=== PATIENT | female | born 1995 | race American Indian/Alaskan Native ===

== ENCOUNTER 2016-12-23 03:06 | Emergency (ER) | payer BC, MEDICAID, OTHER ==
[2016-12-23] MEDS ORDERED: ALUM-MAG HYDROX-SIMETH 200-200-20MG/5ML PO ONE (05:00)
[2016-12-23] MEDS ORDERED: LIDOCAINE VISCOUS 2% PO ONE (05:00)
[2016-12-23] MEDS ORDERED: DECADRON IM ONE (05:00)
[2016-12-23] MEDS ORDERED: MOTRIN PO ONE (05:00)
[2016-12-23] MEDS ORDERED: TYLENOL PO ONE (05:00)
--- NOTE | 2016-12-23 05:01 | Emergency Department Report ---
ED General Adult HPI - General Chief complaint: Sore Throat Stated complaint: SORE THROAT Time Seen by Provider: 12/23/16 04:55 Source: patient, RN notes reviewed Mode of arrival: Ambulatory Limitations: No Limitations - History of Present Illness Initial comments: This is a 21-year-old female. She is previously unknown to me. She presents to the ER with sore throat, ear pain, and body pain. There is a positive cough. No fevers that she is aware of. No chills. No shortness of breath. No abdominal pain. Pain increases with swallowing. She reports that she is . She reports that she was recently incarcerated for 6 days, and is worried that she may have "caught something." -: Gradual Severity scale (0 -10): 10 Quality: aching Consistency: intermittent Improves with: rest Worsens with: eating Associated Symptoms: denies: confusion, chest pain, fever/chills - Related Data Previous Rx's Medication Instructions Recorded Last Taken Type Ondansetron [Zofran Odt] 4 mg PO Q4H #20 tab.rapdis 01/01/14 Unknown Rx Pnv#21/Iron Ps& Heme Polyp/FA 1 each PO QDAY #30 tablet 01/01/14 Unknown Rx [Prefera Ob Tablet] Cephalexin [Keflex] 500 mg PO TID #9 capsule 09/01/14 Unknown Rx Allergies Allergy/AdvReac Type Severity Reaction Status Date / Time No Known Allergies Allergy Unverified 06/13/13 03:19 ED Review of Systems ROS: Stated complaint: SORE THROAT Other details as noted in HPI Constitutional: denies: fever Eyes: denies: vision change ENT: ear pain, throat pain, congestion Respiratory: see HPI. denies: shortness of breath Cardiovascular: denies: chest pain Gastrointestinal: denies: abdominal pain Genitourinary: denies: urgency, dysuria, discharge Musculoskeletal: arthralgia Skin: denies: lesions Neurological: denies: weakness ED Past Medical Hx - Past Medical History Previous Medical History?: No - Surgical History Past Surgical History?: No - Social History Smoking Status: Never Smoker Substance Use Type: None - Medications Home Medications: Home Medications Medication Instructions Recorded Confirmed Last Taken Type Ondansetron [Zofran Odt] 4 mg PO Q4H #20 tab.rapdis 05/02/14 Unknown Rx Pnv#21/Iron Ps& Heme Polyp/FA 1 each PO QDAY #30 tablet 01/01/14 Unknown Rx [Prefera Ob Tablet] Cephalexin [Keflex] 500 mg PO TID #9 capsule 09/01/14 Unknown Rx ED Physical Exam - General Limitations: No Limitations General appearance: alert, in no apparent distress - Head Head exam: Present: atraumatic, normocephalic - Eye Eye exam: Present: normal appearance, PERRL, EOMI, nystagmus - ENT ENT exam: Present: normal exam, normal orophraynx, mucous membranes moist, TM's normal bilaterally, normal external ear exam - Neck Neck exam: Present: normal inspection, full ROM. Absent: tenderness, meningismus, lymphadenopathy - Respiratory Respiratory exam: Present: normal lung sounds bilaterally. Absent: respiratory distress, wheezes, rales, rhonchi, stridor, chest wall tenderness, accessory muscle use, decreased breath sounds, prolonged expiratory - Cardiovascular Cardiovascular Exam: Present: regular rate, normal rhythm, normal heart sounds. Absent: bradycardia, tachycardia, irregular rhythm, systolic murmur, diastolic murmur, rubs, gallop - GI/Abdominal GI/Abdominal exam: Present: soft, normal bowel sounds. Absent: distended, tenderness, guarding, rebound, rigid, pulsatile mass - Extremities Exam Extremities exam: Present: normal inspection, full ROM, normal capillary refill. Absent: tenderness, pedal edema, joint swelling, calf tenderness - Back Exam Back exam: Present: normal inspection, full ROM. Absent: tenderness, CVA tenderness (R), CVA tenderness (L), muscle spasm, paraspinal tenderness, vertebral tenderness - Neurological Exam Neurological exam: Present: alert, oriented X3, normal gait, other (Extraocular movements intact. Tongue midline. No facial droop. Facial sensation intact to light touch in the V1, V2, V3 distribution bilaterally. 5 and 5 strength in 4 extremities.. Sensation is intact to light touch in 4 extremities.). Absent : motor sensory deficit - Psychiatric Psychiatric exam: Present: normal affect, normal mood - Skin Skin exam: Present: warm, dry, intact, normal color. Absent: rash ED Course Vital Signs 12/23/16 12/23/16 12/23/16 03:41 05:20 05:35 Temperature 99.2 F 98.2 F Pulse Rate 103 H 90 Respiratory 18 20 20 Rate Blood Pressure 124/80 Blood Pressure 124/80 119/77 [Right] O2 Sat by Pulse 98 100 Oximetry - Reevaluation(s) Reevaluation #1: 12/23/16 05:42 Differential diagnosis: Pharyngitis, viral syndrome Assessment and plan: 21-year-old female with probable viral syndrome. Has a low -grade temperature, and is tachycardic initially. Hallam improved at the symptomatic therapy. I highly doubt acute streptococcal pharyngitis, as the patient scores very low on the Centor criteria. In any event, a strep screen is pending. Reevaluation #2: 12/23/16 05:44 patient is speaking in full sentences, there is no stridor or dysphonia, she is talking in a cellular phone, I think surgical airway emergency is very unlikely at this time. Reevaluation #3: 12/23/16 06:05 care is transferred to [facility] pending results of strep screen ED Medical Decision Making - Lab Data Vital Signs 12/23/16 12/23/16 12/23/16 03:41 05:20 05:35 Temperature 99.2 F 98.2 F Pulse Rate 103 H 90 Respiratory 18 20 20 Rate Blood Pressure 124/80 Blood Pressure 124/80 119/77 [Right] O2 Sat by Pulse 98 100 Oximetry Critical care attestation.: If time is entered above; I have spent that time in minutes in the direct care of this critically ill patient, excluding procedure time. ED Disposition Clinical Impression: Viral syndrome Disposition: DISCHARGED TO HOME OR SELFCARE Is pt being admited?: No Does the pt Need Aspirin: No Condition: Stable Instructions: Viral Syndrome (ED) Additional Instructions: Cultures were sent today, results will be available next 3-5 days. Have a primary care doctor contact the medical records department to obtain the culture results. Take Tylenol every 4 hours as needed for pain. Take ibuprofen, 4-600 mg with food every 6 hours as needed for pain. Make sure to take this medication with food. Return to the ER right away with intractable nausea or vomiting, inability to tolerate liquid feeds, inability to speak, and ability to breathe. Referrals: PRIMARY CARE, [Primary Care Provider] - 3-5 Days ETIENNE OLIVAS MD [Staff Physician] - 3-5 Days [facility] [Provider Group] - 3-5 Days
[2016-12-23 05:35] VITALS: BP 119/77
== END 2016-12-23 06:25 | disposition home or self-care (01) ==
LOC: ED 03:06
DX: B34.9 Viral infection, unspecified (principal)
CPT/HCPCS: 87116; 87430; 96372; 99282; J1100

== ENCOUNTER 2020-12-29 22:50 | Emergency (ER) | payer SELFPAY ==
--- NOTE | 2020-12-30 00:37 | Emergency Department Report ---
ED Headache HPI - General Chief Complaint: Headache Stated Complaint: HEADACHE/HIGH BLOOD PRESSURE Source: patient - History of Present Illness Timing/Duration: other (2 weeks) Quality: mild Recent Head Trauma: no recent headache/trauma Associated Symptoms: denies: fatigue, facial pain, fever/chills, flushing, nausea/vomiting, nasal congestion, nasal drainage, numbness in legs/feet, sinus infection, stiff neck, vision changes, weakness Allergies/Adverse Reactions: Allergies No Known Allergies Allergy (Unverified 06/13/13 03:19) Home Medications: Ambulatory Orders Potassium Chloride 20 meq PO QDAY #14 packet 04/12/20 ED Review of Systems ROS: Stated complaint: HEADACHE/HIGH BLOOD PRESSURE Other details as noted in HPI Comment: All other systems reviewed and negative ED Past Medical Hx - Past Medical History Previous Medical History?: Yes Hx Hypertension: Yes Hx Psychiatric Treatment: Yes (Anxiety) Additional medical history: anxiety - Surgical History Past Surgical History?: No - Social History Smoking Status: Current Every Day Smoker Substance Use Type: Alcohol - Medications Home Medications: Home Medications Medication Instructions Recorded Confirmed Last Taken Type Potassium Chloride 20 meq PO QDAY #14 packet 04/12/20 Unknown Rx ED Physical Exam - General Limitations: No Limitations General appearance: alert, in no apparent distress - Head Head exam: Present: atraumatic, normocephalic - Eye Eye exam: Present: normal appearance - ENT ENT exam: Present: mucous membranes moist - Neck Neck exam: Present: normal inspection, tenderness (Bilateral trapeze) - Respiratory Respiratory exam: Present: normal lung sounds bilaterally. Absent: respiratory distress, chest wall tenderness, accessory muscle use - Cardiovascular Cardiovascular Exam: Present: regular rate, normal rhythm. Absent: systolic murmur, diastolic murmur, rubs, gallop - GI/Abdominal GI/Abdominal exam: Present: soft, normal bowel sounds - Extremities Exam Extremities exam: Present: normal inspection, full ROM. Absent: pedal edema - Back Exam Back exam: Present: normal inspection - Neurological Exam Neurological exam: Present: alert, oriented X3, normal gait - Psychiatric Psychiatric exam: Present: normal affect, normal mood - Skin Skin exam: Present: warm, dry, intact, normal color. Absent: rash ED Course Vital Signs 12/29/20 23:31 Temperature 98.8 F Pulse Rate 93 H Respiratory 18 Rate Blood Pressure 132/76 O2 Sat by Pulse 97 Oximetry Critical care attestation.: If time is entered above; I have spent that time in minutes in the direct care of this critically ill patient, excluding procedure time. ED Disposition Clinical Impression: Headache, Strain of neck muscle, Elevated blood pressure reading Disposition: TO HOME OR SELFCARE Is pt being admited?: No Does the pt Need Aspirin: No Condition: Stable Instructions: Hypertension, Adult, [id number], Preventing Hypertension Additional Instructions: Please increase your fluid intake. Tylenol or ibuprofen as needed for pain. Avoid processed foods follow a low-sodium diet exercise daily and keep your appo intment with your doctor tomorrow. Referrals: BLAKE HA MD [Staff Physician] - 3-5 Days OXANA JOSÉ MD [Staff Physician] - 3-5 Days ARLENE GAN FNP [Referring] - 3-5 Days
[2020-12-30 01:12] VITALS: BP 124/84
== END 2020-12-30 01:00 | disposition home or self-care (01) ==
LOC: ED 22:50
DX: S16.1XXA Strain of muscle, fascia and tendon at neck level, initial encounter (principal); R03.0 Elevated blood-pressure reading, without diagnosis of hypertension; F41.9 Anxiety disorder, unspecified; Z79.899 Other long term (current) drug therapy; X58.XXXA Exposure to other specified factors, initial encounter; Y93.89 Activity, other specified; Y92.89 Other specified places as the place of occurrence of the external cause; Y99.8 Other external cause status
CPT/HCPCS: 99282